=== PATIENT | female | born 1990 | race African-American/Black ===

== ENCOUNTER 2017-10-27 16:12 | Emergency (ER) | payer OTHER ==
[2017-10-27] MEDS: NORCO, ANEXSIA 5/325MG TABLET (HYDROcodone/ACETAMINOPHEN) PO (19:15)
== END 2017-10-27 20:40 | disposition home or self-care (01) ==
LOC: M ED 16:12
DX: S40.012A Contusion of left shoulder, initial encounter (principal); V49.49XA Driver injured in collision with other motor vehicles in traffic accident, initial encounter; Y92.410 Unspecified street and highway as the place of occurrence of the external cause; Z97.5 Presence of (intrauterine) contraceptive device; F17.210 Nicotine dependence, cigarettes, uncomplicated
CPT/HCPCS: 73030